=== PATIENT | male | born 1960 | race Caucasian/White ===

== ENCOUNTER 2017-02-05 16:31 | Emergency (ER) | payer MEDICARE, OTHER ==
[~2017-02-05] VITALS: Ht 177.8 cm; Wt 102.0 kg
[2017-02-05 16:32] VITALS: BP 169/100; PULSE 73; RESP 20; TEMP 98.3; O2SAT 98
--- NOTE | 2017-02-05 17:16 | PD ---
Physical Exam Time Seen by Provider: 17:11 Narrative 56 y/o male presents for evaluation of 2 days of BLE edema with associated pain. denies dyspnea, cp. Ran out of hctz one week ago, has a prescription for a refill but hasn't gotten it filled. He admits that he was not compliant with hctz prior to running out of it. He is also complaining of back pain/ paresthesias. Endorses hx of chronic lower back pain since 2001. vss Seen at triage desk. Awaiting bed placement. Data Data Last Documented VS Vital Signs Date Time Temp Pulse Resp B/P Pulse Ox O2 Delivery O2 Flow Rate FiO2 02/05/17 16:32 98.3 73 20 169/100 98 Room [facility] Medical Record Reviewed: Yes Supervised Visit with LUIS ALBERTO: Hector Marshall February 05, 2017 17:16
== END 2017-02-05 20:04 | disposition left against medical advice (07) ==
LOC: NED 16:31
DX: R60.9 Edema, unspecified (principal)
CPT/HCPCS: 99283